=== PATIENT | male | born 1980 ===

== ENCOUNTER → 2018-04-25 | Day surgery (SDC) | payer BC ==
[2018-04-22 12:37] VITALS: BMI 28.0
[~2018-04-25] MED LIST: Dexamethasone 4 mg/1 ml IVP STA; Lactated Ringer's 1,000 ML IV ONE; Lidocaine/Epinephrine 1% 1:100000 10 ML IJ ONE; Midazolam 2 MG/2 ML VIAL ONE; Propofol 10 mg/ml Inj (20 ML) ONE; Rocuronium 10 mg/ml (5 ml) ONE; Succinylcholine Chloride 20 mg/ml Syr (5 ml) IV ONE
[2018-04-25] MEDS: HYDROmorphone 0.5 mg/0.5 ml ISec IVP PRN ×4 (10:55→12:23)
[2018-04-25 13:45] VITALS: RESP 16
[2018-04-25 16:07] VITALS: BP 124/68; PULSE 108; TEMP 98; O2SAT 98
--- NOTE | 2018-04-26 06:49 | OP ---
PROCEDURE DATE: 04/25/2018 POSTOP SURGICAL NOTE PREOPERATIVE DIAGNOSIS: Dental abscess secondary to foreign body. POSTOPERATIVE DIAGNOSIS: Dental abscess secondary to foreign body. SURGEON: Lyn Mckinney DMD ANESTHESIA: General anesthesia via oral endotracheal intubation. DESCRIPTION OF PROCEDURE: The patient was placed in supine position, and adequate level of general anesthesia was obtained. The patient was prepped and draped in the usual customary manner for removal of a foreign body. The foreign body was located on the lingual surface in the pterygoid muscle. With a 15 Bard-Gavin blade, a lingual incision was made from the lower right third molar and extended to the canine. The flap was then elevated, and through digital palpation and pressure from the inferior border of the mandible upward and the lingual sulcus vestibule. The body was then palpated and using a curved Carmenza, the object was then grasped and removed from its position. The tissues were then reapproximated with 3-0 chromic gut. The patient tolerated the procedure well, and there was no complication. Estimated blood loss about 5 mL. Specimen was submitted for histopathologic evaluation. Lyn Mckinney DMD
== END | disposition home or self-care (01) ==
LOC: C.SDS 05:58
PROVIDERS: ATTEND Dentist
DX: K04.7 Periapical abscess without sinus (principal); K12.2 Cellulitis and abscess of mouth; K01.1 Impacted teeth
CPT/HCPCS: 40800; 41899; 88300; J1100; J1170; J2001; J2250; J2405; J2704; J3010; J7040; J7120